=== PATIENT | male | born 1985 | race African-American/Black ===

== ENCOUNTER 2016-11-06 07:02 | Emergency (ER) | payer OTHER ==
[~2016-11-06] VITALS: Ht 170.2 cm; Wt 88.5 kg
[2016-11-06] MEDS ORDERED: cloNIDine HCL 0.1 MG TAB ONE (07:25)
[2016-11-06] MEDS ORDERED: ACETAMINOPHEN 325 MG TAB PO ONE ×2 (07:25→07:30)
[2016-11-06] MEDS ORDERED: cloNIDine HCL 0.1 MG TAB PO ONE (07:30)
[2016-11-06 10:24] LABS: Basophils # (auto) 0 uL; Basophils % (auto) 0.1 % (0.0-2.0); CONDITION Y; Eosinophils # (auto) 0 uL; Eosinophils % (auto) 0.3 % (0.0-7.0); Hematocrit 48.5 % (41.0-53.0); Hemoglobin 16.2 g/dL (13.5-17.5); Lymphocytes # (auto) 0.9 uL; Lymphocytes % (auto) 10.8 % (10.0-50.0); Mean Corpuscular Hemoglobin 29.4 pg (28.0-32.0); Mean Corpuscular Hgb Conc. 33.4 g/dL (32.0-36.0); Mean Corpuscular Volume 88.1 fL (80.0-100.0); Mean Platelet Volume 10.8 fL (7.4-10.4); Monocytes # (auto) 0.2 uL; Monocytes % (auto) 2.1 % (0.0-12.0); Neutrophils # (auto) 6.9 uL; Neutrophils % (auto) 86.7 % (37.0-80.0); Platelet Count (auto) 214 10^3/uL (140-450); Red Cell Distribution Width 14.3 % (11.6-16.0); SUSPECT SEE PRINTOUT
[2016-11-06 10:47] LABS: Albumin 3.5 g/dL (3.4-5.0); BUN/Creatinine Ratio 11.1; Bilirubin, Total 0.9 mg/dL (0.2-1.0); Calcium 9.3 mg/dL (8.5-10.1); Magnesium 2.5 mg/dL (1.6-2.6); Potassium 3.6 mmol/L (3.5-5.1); Total Protein 7.9 g/dL (6.4-8.2)
== END 2016-11-06 14:02 | disposition left against medical advice (07) ==
LOC: ER 07:02
DX: I10 Essential (primary) hypertension (principal); R51 Headache; Z53.21 Procedure and treatment not carried out due to patient leaving prior to being seen by health care provider
CPT/HCPCS: 36415; 80053; 83735; 84484; 85025

== ENCOUNTER 2018-11-22 19:48 | Emergency (ER) | payer SELFPAY ==
[~2018-11-22] VITALS: Ht 170.2 cm; Wt 87.1 kg
[2018-11-22] MEDS ORDERED: cloNIDine HCL 0.1 MG TAB ONE (19:59)
[2018-11-22 20:10] LABS: Urine WBC None Seen /hpf (0 - 3)
[2018-11-22] MEDS ORDERED: cloNIDine HCL 0.1 MG TAB PO ONE (20:15)
[2018-11-22 20:25] LABS: Basophils # (auto) 0.1 uL; Eosinophils # (auto) 0.1 uL; Eosinophils % (auto) 1.8 % (0.0-7.0); Hematocrit 43.1 % (41.0-53.0); Hemoglobin 14.2 g/dL (13.5-17.5); Lymphocytes # (auto) 1.9 uL; Lymphocytes % (auto) 26.6 % (10.0-50.0); Mean Corpuscular Hemoglobin 29.5 pg (28.0-32.0); Mean Corpuscular Volume 89.5 fL (80.0-100.0); Monocytes # (auto) 0.6 uL; Monocytes % (auto) 7.9 % (0.0-12.0); Neutrophils # (auto) 4.6 uL; Neutrophils % (auto) 62.7 % (37.0-80.0); Platelet Count (auto) 235 10^3/uL (140-450); Red Blood Cells 4.82 10^6/uL (4.5-5.90); Red Cell Distribution Width 14.7 % (11.8-14.3); White Blood Cell 7.3 10^3/uL (4.4-10.8)
[2018-11-22 20:30] LABS: Urine Bacteria NONE SEEN /hpf (None Seen); Urine Blood 3+ /uL (Negative)
[2018-11-22 20:41] LABS: Albumin 2.6 g/dL (3.4-5.0); BUN/Creatinine Ratio 4.9; Potassium 4.1 mmol/L (3.5-5.1)
[2018-11-22 20:46] LABS: Bilirubin, Total 0.1 mg/dL (0.2-1.0); Total Protein 6.8 g/dL (6.4-8.2)
[2018-11-23 03:41] VITALS: BP 139/91
[2018-11-23] MEDS ORDERED: MORPHINE SULFATE 4 MG/ML SYR/VIAL IV ONE (04:00)
[2018-11-23] MEDS ORDERED: ONDANSETRON HCL 4 MG/2 ML VIAL IV ONE (04:00)
== END 2018-11-23 04:27 | disposition home or self-care (01) ==
LOC: ER 19:54
DX: N20.0 Calculus of kidney (principal); I12.0 Hypertensive chronic kidney disease with stage 5 chronic kidney disease or end stage renal disease; N18.6 End stage renal disease
CPT/HCPCS: 36415; 74176; 80053; 81001; 84484; 85025; 94761; 96374; 96375; 99284; J2270; J2405

== ENCOUNTER 2019-01-06 14:00 | Emergency (ER) | payer MEDICAID ==
[~2019-01-06] VITALS: Ht 170.2 cm; Wt 89.4 kg
[2019-01-06 14:27] VITALS: BP 207/138
[2019-01-06] MEDS ORDERED: cloNIDine HCL 0.1 MG TAB PO ONE (14:30)
[2019-01-06] MEDS ORDERED: amLODIPine BESYLATE 5 MG TAB PO ONE (14:45)
[2019-01-06] MEDS ORDERED: LISINOPRIL 20 MG TAB PO ONE (15:15)
== END 2019-01-06 14:59 | disposition home or self-care (01) ==
LOC: ER 14:00
DX: N39.0 Urinary tract infection, site not specified (principal); I12.9 Hypertensive chronic kidney disease with stage 1 through stage 4 chronic kidney disease, or unspecified chronic kidney disease; N18.9 Chronic kidney disease, unspecified; Z87.442 Personal history of urinary calculi

== ENCOUNTER → 2019-03-21 | Outpatient (CLI) | payer MEDICAID ==
[~2019-03-21] MED LIST: HYDR25TA4 PO
[2019-03-21 10:43] LABS: Basophils # (auto) 0 uL; Basophils % (auto) 0.8 % (0.0-2.0); Eosinophils # (auto) 0.1 uL; Hematocrit 35.6 % (41.0-53.0); Lymphocytes # (auto) 1.6 uL; Lymphocytes % (auto) 31.1 % (10.0-50.0); Mean Corpuscular Hemoglobin 29.9 pg (28.0-32.0); Mean Corpuscular Hgb Conc. 33.6 g/dL (32.0-36.0); Monocytes # (auto) 0.4 uL; Monocytes % (auto) 7.3 % (0.0-12.0); Neutrophils # (auto) 3.1 uL; Neutrophils % (auto) 59.8 % (37.0-80.0); Platelet Count (auto) 204 10^3/uL (140-450); Red Cell Distribution Width 14.5 % (11.8-14.3); White Blood Cell 5.2 10^3/uL (4.4-10.8)
[2019-03-21 10:48] LABS: Urine Bacteria NONE SEEN /hpf (None Seen); Urine Blood 1+ /uL (Negative); Urine Specific Gravity 1.008 (1.001-1.035); Urine WBC 46 /hpf (0 - 3)
[2019-03-21 11:30] LABS: Albumin 3.8 g/dL (3.4-5.0); Bilirubin, Total 0.4 mg/dL (0.2-1.0); Calcium 9.1 mg/dL (8.5-10.1); Total Protein 7.7 g/dL (6.4-8.2)
[2019-03-21 11:53] LABS: Potassium 6.2 mmol/L (3.5-5.1)
== END | disposition home or self-care (01) ==
LOC: LAB 09:41
PROVIDERS: ATTEND Nurse Practitioner
DX: Z00.00 Encounter for general adult medical examination without abnormal findings (principal); E78.5 Hyperlipidemia, unspecified; I12.9 Hypertensive chronic kidney disease with stage 1 through stage 4 chronic kidney disease, or unspecified chronic kidney disease; N18.4 Chronic kidney disease, stage 4 (severe)
CPT/HCPCS: 36415; 80053; 80061; 81001; 82306; 84443; 85025

== ENCOUNTER → 2019-05-09 | Outpatient (CLI) | payer MEDICAID ==
[2019-05-09 10:20] LABS: Urine Amorphous Crystal FEW /hpf (None Seen); Urine Bacteria FEW /hpf (None Seen); Urine Blood 2+ /uL (Negative); Urine WBC 7 /hpf (0 - 3)
[2019-05-09 10:24] LABS: Basophils # (auto) 0 uL; Basophils % (auto) 0.7 % (0.0-2.0); Eosinophils # (auto) 0.1 uL; Eosinophils % (auto) 1.7 % (0.0-7.0); Hematocrit 30.4 % (41.0-53.0); Hemoglobin 10.3 g/dL (13.5-17.5); Lymphocytes # (auto) 1.5 uL; Lymphocytes % (auto) 28.7 % (10.0-50.0); Mean Corpuscular Hemoglobin 29.4 pg (28.0-32.0); Mean Corpuscular Hgb Conc. 33.7 g/dL (32.0-36.0); Mean Corpuscular Volume 87.2 fL (80.0-100.0); Monocytes # (auto) 0.4 uL; Monocytes % (auto) 7.6 % (0.0-12.0); Neutrophils # (auto) 3.2 uL; Neutrophils % (auto) 61.3 % (37.0-80.0); Platelet Count (auto) 229 10^3/uL (140-450); Red Blood Cells 3.49 10^6/uL (4.5-5.90); Red Cell Distribution Width 14.3 % (11.8-14.3); White Blood Cell 5.3 10^3/uL (4.4-10.8)
[2019-05-09 10:38] LABS: Calcium 8.2 mg/dL (8.5-10.1); Potassium 3.9 mmol/L (3.5-5.1)
[2019-05-09 10:44] LABS: BUN/Creatinine Ratio 2.6; Bilirubin, Total 0.4 mg/dL (0.2-1.0); Total Protein 8.5 g/dL (6.4-8.2)
== END | disposition home or self-care (01) ==
LOC: LAB 09:51
PROVIDERS: ATTEND Nurse Practitioner
DX: Z00.00 Encounter for general adult medical examination without abnormal findings (principal); E78.5 Hyperlipidemia, unspecified; Z99.2 Dependence on renal dialysis
CPT/HCPCS: 36415; 80053; 80061; 81001; 84443; 85025

== ENCOUNTER 2024-05-22 01:46 | Inpatient (IN) | payer MEDICAID ==
[~2024-05-22] VITALS: Ht 167.6 cm; Wt 81.8 kg
[2024-05-22] MEDS: ONDANSETRON HCL 4 MG/2 ML VIAL IM ONE (02:24)
[2024-05-22] MEDS: MORPHINE SULFATE 4 MG/ML SYR/VIAL IV ONE ×2 (02:24→02:43)
[2024-05-22] MEDS: METOPROLOL TARTRATE 1MG/1ML-5ML VIAL IV SCH (02:49)
--- NOTE | 2024-05-22 02:55 | ECG ---
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
--- NOTE | 2024-05-22 02:55 | ECG ---
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
--- NOTE | 2024-05-22 03:13 | ED.PDOC ---
History of Present Illness HPI Comments 38 y/o M, with a Hx of CHF, ESRD w/HD M/W/F, and HTN, presents with c/o chest pain, today. Patient endorses on unprovoked onset of 12/25, sternal chest pain that awoke him from his sleep 1-2 hours ago prior to ED arrival. Patient comments on having chest pain in the past but not as severe as current episode a nd was diagnosed with CHF when evaluated for previous episodes in the past. He also states on receiving his last dialysis session on 04/19/23. Patient denies having any shortness of breath, dizziness, palpitations, nausea, vomiting, or other associated symptoms or modifiers at this time. Chief Complaint: Chest Pain Time Seen by MD: 02:45 Primary Care Provider: GEORGE Miranda Notes: Nurses Notes, Medications, Allergies Allergies: Coded Allergies: NO KNOWN ALLERGIES (Unverified , 01/06/19) Home Meds Reported Medications Hydrochlorothiazide (Hydrochlorothiazide) 25 Mg Tab, 25 MG PO DAILY for 30 Days, MG 03/21/19 Information Source: Patient Mode of Arrival: EMS Severity: Moderate Timing: Hours Duration: Since onset Prehospital treatment: None Past Medical History PAST MEDICAL HISTORY: CHF, ESRD (w/HD M/W/F), HTN, Kidney Stones Surgical History: Denies all surgeries Family History Family History: Reviewed,noncontributory to illness Social History Smoker: Non-Smoker Alcohol: Occasionally Drugs: Marijuana Lives In: Home Cardiovascular: reports: chest pain All Other Systems: Reviewed and Negative (negative unless otherwise stated above or in HPI) Physical Exam General Appearance: Moderate Distress, Normal HEENT: Normal ENT Inspection, Pharynx Normal, TMs Normal Neck: Full Range of Motion, Non-Tender, Normal, Normal Inspection Respiratory: Chest Non-Tender, Lungs Clear, No Accessory Muscle Use, No Respiratory Distress, Normal Breath Sounds Cardiovascular: No Edema, No JVD, No Murmur, No Gallop, Normal Peripheral Pulses, Regular Rate/Rhythm Breast Exam: Deferred Gastrointestinal: Distended, No Organomegaly, Non Tender, No Pulsatile Mass, Normal Bowel Sounds, Soft Genitalia: Deferred Pelvic: Deferred Rectal: Deferred Extremities: No calf tenderness, Normal capillary refill, Normal inspection, Normal range of motion, Non-tender, No pedal edema, Other (left upper extremity fistula ) Musculoskeletal : Apperance: Normal Neurologic: Alert, 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 Was a procedure done?: No EKG EKG : Pulse Rate (adult): 141 Duncan: Normal Cardiac Rhythm: Junctional Block: None Hypertrophy: None ST: Normal Differential Dx Considerations may include: NE, ACS, PE, costochondritis, pericarditis, viral syndrome, URI, PNA, musculoskeletal pain X-Ray, Labs, Meds, VS Vital Signs Date Time Temp Pulse Resp B/P (MAP) Pulse Ox O2 Delivery O2 Flow Rate FiO2 05/22/24 04:00 98.1 140 26 109/85 (93) 90 98.1 05/22/24 03:51 147 22 95 Nasal Cannula* 4 36 05/22/24 03:13 138 122/89 05/22/24 03:13 130 19 122/89 05/22/24 03:01 138 117/91 05/22/24 02:54 138 19 138/88 05/22/24 02:50 142 05/22/24 02:49 147 138/88 05/22/24 02:43 149 26 138/78 05/22/24 02:34 97.9 141 26 132/87 (102) 90 97.9 05/22/24 02:24 148 16 138/78 05/22/24 01:50 98.2 144 18 167/113 (131) 94 05/22/24 01:46 141 Lab Test 05/22/24 03:02 05/22/24 02:14 Range/Units Troponin I High Sensitivity 81 *H 82 *H </=54 ng/L Current Medications Medications (Trade) Dose Ordered Sig/Ramona Route Start Time Stop Time Status Last Admin Morphine Sulfate 4 mg ONCE ONCE IV 05/22/24 02:30 05/22/24 02:31 DC 05/22/24 02:24 Ondansetron HCl (Zofran) 2 mg ONCE ONCE IM 05/22/24 02:30 05/22/24 02:31 DC 05/22/24 02:24 Morphine Sulfate 4 mg ONCE ONCE IV 05/22/24 02:45 05/22/24 02:46 DC 05/22/24 02:43 Metoprolol Tartrate (Lopressor) 5 mg Q5M IV 05/22/24 02:45 05/22/24 03:17 DC 05/22/24 03:13 Patient was given morphine and oxygen were pain. Junctional rhythm with a heart rate of 142. He was given metoprolol 5 mg q.5h minutes x3 intravenous , we will add amiodarone bolus he has chronic kidney disease and he does not make urine. He is scheduled for dialysis on Monday and Fridays. First troponin 81... Second troponin is 82 The patient will be admitted to the hospitalist for further evaluation and care. The patient will be admitted to the hospitalist for further evaluation and care. Time of 1ST Reevaluation: 03:15 Reevaluation 1ST: Unchanged Patient Education/Counseling: Diagnosis, Treatment Family Education/Counseling: No Family Present Departure 1 Departure Time of Disposition: 04:18 Impression: Primary Impression: Chest pain Qualified Codes: R07.9 - Chest pain, unspecified Additional Impressions: Acute coronary syndrome Chronic kidney disease Qualified Codes: N18.9 - Chronic kidney disease, unspecified Junctional rhythm Disposition: ADMITTED INPATIENT Admit to: [facility] Condition: Guarded Critical Care Note Critical Care Time?: No Stability Stability form required: No Heart Score Heart Score: Heart Score Response (Comments) Value History Highly Suspicious 2 EKG Repolarization Disturb 1 Age <45 0 Risk Factors >3 or Hx ASHD 2 Troponin 1-2 x's Normal limit 1 Total 6 I personally scribed for RON CORONA MD ([email or web address]) on 05/22/24 at 03:13. Electronically submitted by Murphy Burns [email or web address]). RON CORONA MD May 22, 2024 03:13
[2024-05-22 03:51] VITALS: PULSE 147; RESP 22; O2SAT 95
--- NOTE | 2024-05-22 04:43 | DVH ---
CHEST RADIOGRAPH Indication: chest pain Technique: Single frontal view of the chest was obtained Comparison: None FINDINGS: Lines and Tubes: None Lungs: No focal consolidation. Pleura: No effusion. No pneumothorax. Cardiomediastinal contours: Unremarkable Bones: No acute osseous abnormality. IMPRESSION: No acute cardiopulmonary disease.
[2024-05-22] MEDS: dilTIAZem 25 MG/5 ML VIAL IV ONE (04:51)
[2024-05-22] MEDS ORDERED: ENOXAPARIN SOD 40 MG/0.4 ML SYRINGE SC ONE (05:30)
[2024-05-22] MEDS ORDERED: NITROGLYCERIN 0.4 MG SL TAB SL PRN (05:30)
[2024-05-22] MEDS ORDERED: MORPHINE SULFATE INJ 2 MG/ml SYRG IV PRN (05:30)
--- NOTE | 2024-05-22 05:35 | DVHHPRES ---
History of Present Illness Resident Creating Document: DYLAN PORTILLO RESDIENT History of Present Illness This is a 38-year-old male with past medical history of CHF, ESRD on maintenance hemodialysis, hypertension and kidney stone came to the hospital due to chest pain. Per patient, the patient had localized constant substernal chest pain with no radiation, 9/10 in intensity and started during the rest, lasted for 40 minutes and improved by taking medicine at hospital. He also reports shortness of breath, weakness, nausea and left upper quadrant pain. Per patient, he has left upper quadrant pain since 1 week. He denies fever, cough, headache, vomiting, or any recent bowel and bladder habit changes. PMHx: CHF, ESRD on maintenance hemodialysis, hypertension and kidney stone Social history: Patient denies smoking, alcohol and any other drug use Home medication: Nifedipine, labetalol, candesartan, and auryxia Allergic history: No known allergy Review of Systems Review of Systems General: Patient reports weakness HEENT: No headaches, visiual changes, hearing loss, tinnitus, nasal congestion and discharge, and sore throat. Cardiovascular: Reports shortness of breaths, chest pain and palpitation Respiratory: No cough, and wheezing. Gastrointestinal: Reports left upper quadrant pain Genitourinary: No dysuria, hematuria, discharge, frequency, urgency, nocturia, incontinence, and urinary retention. Endocrine: No heat or cold intolerance, polydipsia, polyuria, and polyphagia. Neurological: No dizziness, extremity weakness and numbness, tremors, gait disturbance, seizures, and memory impairment. Psychiatric: Denies depression, anxiety,or insomnia. Musculoskeletal: Denies neck pain, stiffness and swelling, back pain, muscle w eakness, joint pain, stiffness, swelling, or limited range of motion. Skin: No rashes, itching, skin lesion, changes in hair, nail, skin texture and breast. Hematologic/Lymphatic: Denies easy bruising, bleeding tendencies, or lymph node enlargement. Allergies: Coded Allergies: NO KNOWN ALLERGIES (Unverified , 01/06/19) Medications Current Medications Medications Dose Ordered Sig/Ramona Route Start Time Stop Time Status Last Admin Dose Admin Nitroglycerin 0.4 mg Q5MINP PRN SL 05/22/24 05:30 Morphine Sulfate 2 mg Q30M PRN IV 05/22/24 05:30 Aspirin 81 mg DAILY PO 05/22/24 10:00 UNV Atorvastatin Calcium 40 mg HS PO 05/22/24 22:00 UNV Enoxaparin Sodium 40 mg DAILY SC 05/22/24 10:00 UNV Exam Vital Signs Vital Signs Date Time Temp Pulse Resp B/P (MAP) Pulse Ox O2 Delivery O2 Flow Rate FiO2 05/22/24 05:00 98.6 127 22 115/94 (101) 98 98.6 05/22/24 03:51 Nasal Cannula* 4 36 Exam General Appearance: Alert, Oriented X3, Cooperative, No acute distress HEENT: Atraumatic, PERRLA, EOMI, Mucous membrane moist/pink Respiratory: Bilateral crackles Cardiovascular: Regular rate, Normal S1, Normal S2, No murmurs, no chest wall tenderness Abdominal: Normal bowel sounds, Soft, No tenderness, No hepatospenomegaly, No masses Extremities: No clubbing, No cyanosis, No edema, Normal pulses, No tenderness/swelling Skin: No rashes, No breakdown, No significant lesion Neuro: Normal gait, Normal speech, Strength at 5/5 X4 ext, Normal tone, Sensation intact, Cranial nerves 3-12 NL, Reflexes 2+ Psych/Mental Status: Mental status NL, Mood NL Labs/Xrays Labs Test 05/22/24 05:00 Range/Units Assessment/Plan Assessment/Plan Acute on chronic heart failure, likely diastolic NSTEMI, likely type 1 SVT, converted to sinus rhythm with metoprolol IV History of hypertension EKG upon admission showed SVT, currently normal sinus rhythm with no ST or T- wave changes Chest x-ray shows cardiomegaly with pulmonary vascular congestion echocardiogram Consulted cardiology IV Lasix Aspirin Atorvastatin Heparin drip Continue home medicine, nifedipine ESRD on maintenance hemodialysis Patient is taking 3 session per week, M/W/F Nephrology consulted DIET: Renal DVT PROPHYLAXIS: Heparin drip GI PROPHYLAXIS:: Protonix CODE STATUS: Goal of care discussed for more than 20 minutes, full code DISPOSITION: Telemetry Patient's status and paln discussed with the patient. Case discussed with Dr. Arellano. Plan discussed with: Patient, Other (RN) My Orders Orders - DYLAN PORTILLO Procedure Category Date Status Time Admit ADMIT 05/22/24 Transmitted 05:24 Nitroglycerin PHA 05/22/24 In Process Sublingual (Ntrostat 05:30 Morphine Sulfate PHA 05/22/24 In Process Injection 05:30 Oxygen By Nasal RT 05/22/24 Transmitted Cannula 05:24 Stat Ekg For Chest [facility] 05/22/24 In Process Pain 05:24 Notify Of Changes [facility] 05/22/24 In Process From Base 05:24 Vp Legal Affairs For [facility] 05/22/24 In Process 24 Hours 05:24 Emergency Dysrhythmia [facility] 05/22/24 In Process Protocol 05:24 Rhythm Strips Once [facility] 05/22/24 In Process Every Shift 05:24 Complete Blood Count LAB 05/22/24 Logged 05:24 Comprehensive LAB 05/22/24 Logged Metabolic Panel 05:24 Magnesium LAB 05/22/24 Logged 05:24 B-Type Natriuretic LAB 05/22/24 Logged Peptide 05:24 Troponin-I Hs LAB 05/22/24 Logged 05:24 Prothrombin Time W/ LAB 05/22/24 Logged INR 05:24 Drug Screen LAB 05/22/24 Logged 05:24 Urine Dip ED NURSING 05/22/24 Transmitted Covid19 Antigen Marielena LAB 05/22/24 Logged Rapid Influenza A&B LAB 05/22/24 Logged 05:24 Mrsa Screen EVERETTE 05/22/24 Logged 05:24 Echo 2d Mode Cardiac US 05/22/24 Logged DOP 05:24 Code Status CODE 05/22/24 Transmitted 05:24 Full Code [facility] 05/22/24 In Process 05:24 Renal DIET 05/22/24 Transmitted Standard(2gna,3gk,Lopho) Breakfast Troponin-I Hs LAB 05/22/24 Logged 06:24 Troponin-I Hs LAB 05/22/24 Logged 08:24 Furosemide Injection PHA 05/22/24 Logged (Lasix Injection) 05:30 Aspirin Tablet PHA 05/22/24 Logged 10:00 Aspirin Tablet PHA 05/22/24 Logged 05:30 Atorvastatin (Lipitor) PHA 05/22/24 Logged 22:00 Atorvastatin (Lipitor) PHA 05/22/24 Logged 05:30 Enoxaparin Sodium PHA 05/22/24 Logged (Lovenox) 05:30 Enoxaparin Sodium PHA 05/22/24 Logged (Lovenox) 10:00 *Dr. Dom Nuñez CONS 05/22/24 Transmitted -[place] 05:28 HEWADMAL,DYLAN LUNSFORD May 22, 2024 05:35
[2024-05-22] MEDS ORDERED: ONDANSETRON ODT 4 MG TAB PO PRN (05:45)
[2024-05-22] MEDS: ATORVASTATIN 20 MG TAB PO ONE (05:53)
[2024-05-22] MEDS: PANTOPRAZOLE 40 MG/10 ML VIAL INJ IV ONE (05:53)
[2024-05-22] MEDS: FUROSEMIDE 100 MG/10ML VIAL IV ONE (05:53)
[2024-05-22] MEDS: ASPirin 81 mg TAB PO ONE (05:53)
[2024-05-22 06:20] LABS: Basophils # (auto) 0.1 10 ^3/uL (0-0.2); Basophils % (auto) 1.2 % (0.0-2.0); Eosinophils # (auto) 0.2 10 ^3/uL (0-0.8); Eosinophils % (auto) 2.3 % (0.0-7.0); Hematocrit 33.9 % (41.0-53.0); Lymphocytes # (auto) 1.1 10 ^3/uL (0.4-5.4); Lymphocytes % (auto) 14.7 % (10.0-50.0); Mean Corpuscular Hemoglobin 30.9 pg (28.0-32.0); Mean Corpuscular Hgb Conc. 32.5 g/dL (32.0-36.0); Mean Corpuscular Volume 95.1 fL (80.0-100.0); Monocytes # (auto) 0.8 10 ^3/uL (0-1.3); Monocytes % (auto) 10.9 % (0.0-12.0); Neutrophils # (auto) 5.2 10 ^3/uL (1.6-8.6); Neutrophils % (auto) 70.9 % (37.0-80.0); Nucleated Red Blood Cells % 0.1 %; Platelet Count (auto) 157 10^3/uL (140-450); Red Blood Cells 3.57 10^6/uL (4.5-5.90); Red Cell Distribution Width 17.9 % (11.8-14.3); White Blood Cell 7.3 10^3/uL (4.4-10.8)
[2024-05-22 06:34] LABS: Alanine Aminotransferase 18 U/L (7-40); Anion Gap 15 (5-15); Aspartate Aminotransferase 26 U/L (13-40); BUN/Creatinine Ratio 5.6 (10.0-20.0); Carbon Dioxide 22 mmol/L (20-31); Chloride 99 mmol/L (98-107); Glucose 104 mg/dL (74-106); Magnesium 2.4 mg/dL (1.6-2.6); Potassium 4.2 mmol/L (3.5-5.1); Sodium 136 mmol/L (136-145)
[2024-05-22 06:35] LABS: Albumin 4.3 g/dL (3.2-4.8); Bilirubin, Total 0.6 mg/dL (0.2-1.0); Total Protein 7.2 g/dL (5.7-8.2)
[2024-05-22 06:37] LABS: Alkaline Phosphatase 159 U/L (46-116); Blood Urea Nitrogen 47 mg/dL (9-23)
[2024-05-22 06:39] LABS: INR 1.19 (0.9-1.15); Prothrombin Time 12.4 sec (9.3-11.8)
[2024-05-22] MEDS: ENOXAPARIN SOD 30 MG/0.3 ML SYRINGE SC SCH (07:06)
[2024-05-22 07:30] VITALS: PULSE 75; RESP 12; O2SAT 98
[2024-05-22 08:14] VITALS: TEMP 97.9
[2024-05-22] MEDS: NIFEdipine ER 30 MG TAB PO ONE (08:48)
[2024-05-22] MEDS: HYDROcodone-ACET 5/325MG TAB PO PRN (08:50)
[2024-05-22] MEDS ORDERED: HEPARIN DRIP/D5W 100UNITS/ML 250 ML IV SCH (09:00)
[2024-05-22 09:36] LABS: Rapid Influenza A Negative (Negative); Rapid Influenza B Negative (Negative)
[2024-05-22 09:45] LABS: Basophils # (auto) 0.1 10 ^3/uL (0-0.2); Eosinophils # (auto) 0.1 10 ^3/uL (0-0.8); Eosinophils % (auto) 1.2 % (0.0-7.0); Lymphocytes % (auto) 16.3 % (10.0-50.0); Mean Corpuscular Hemoglobin 30.4 pg (28.0-32.0); Mean Corpuscular Hgb Conc. 32.2 g/dL (32.0-36.0); Mean Corpuscular Volume 94.2 fL (80.0-100.0); Monocytes # (auto) 0.5 10 ^3/uL (0-1.3); Monocytes % (auto) 8.6 % (0.0-12.0); Neutrophils # (auto) 4.3 10 ^3/uL (1.6-8.6); Neutrophils % (auto) 72.9 % (37.0-80.0); Platelet Count (auto) 166 10^3/uL (140-450); Red Blood Cells 3.61 10^6/uL (4.5-5.90); Red Cell Distribution Width 18.1 % (11.8-14.3); White Blood Cell 5.8 10^3/uL (4.4-10.8)
[2024-05-22 10:00] VITALS: BP 140/92; PULSE 70; RESP 15
[2024-05-22 10:08] LABS: INR 1.03 (0.9-1.15); Partial Thromboplastin Time 27.9 SEC (24.5-34.5); Prothrombin Time 10.9 sec (9.3-11.8)
--- NOTE | 2024-05-22 10:24 | DVHINCON2 ---
Date Seen: May 22, 2024 Referring Physician MD Brigitte Reason for Consultation NSTEMI History of Present Illness This is a 38-year-old man who presented to the emergency room via EMS with a chief complaint of palpitations last night. The patient reports he was asleep when he developed a sudden onset of palpitations prompting him to call 911. Upon EMS arrival the patient was medicated with ASA 324 mg x 1 and NTG SL 0.4 mg x2 with no relief of symptoms. He underwent multiple 12 lead electrocardiogram revealing a junctional tachycardia rhythm for which the patient was medicated with Cardizem 10 mg IV with successful transition into a normal sinus rhythm. He denies any further cardiac symptoms and complaints of left abdominal pain. 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 Significant medical history includes congestive heart failure, hypertension, end-stage renal disease on hemodialysis -W-, and obesity. Past Medical History Past medical history reviewed. No other significant than mentioned above. Past Surgical History Dialysis access Family History Family history reviewed. Social History Denies the use of illicit drugs, alcohol, or tobacco use. Allergies: Coded Allergies: NO KNOWN ALLERGIES (Unverified , 01/06/19) Home Meds Reported Medications Hydrochlorothiazide (Hydrochlorothiazide) 25 Mg Tab, 25 MG PO DAILY for 30 Days, MG 03/21/19 Home Meds Home medications reviewed. Current Medications Current Medications Medications (Trade) Dose Ordered Sig/Ramona Route PRN Reason Start Time Stop Time Status Last Admin Metoprolol Tartrate (Lopressor) 5 mg Q5M IV 05/22/24 02:45 05/22/24 03:17 DC 05/22/24 03:13 Nitroglycerin (Ntrostat Sublingual) 0.4 mg Q5MINP PRN SL FOR CHEST PAIN 05/22/24 05:30 Morphine Sulfate 2 mg Q30M PRN IV FOR CHEST PAIN 05/22/24 05:30 05/22/24 06:57 DC Aspirin 81 mg DAILY PO 05/23/24 10:00 Atorvastatin Calcium (Lipitor) 40 mg HS PO 05/22/24 22:00 Enoxaparin Sodium (Lovenox) 30 mg DAILY SC 05/22/24 07:00 05/22/24 08:54 DC 05/22/24 07:06 Pantoprazole Sodium (Protonix) 40 mg DAILY IV 05/23/24 10:00 05/22/24 07:43 DC Ondansetron HCl (Zofran Po) 4 mg Q8HP PRN PO NAUSEA / VOMITING 05/22/24 05:45 05/22/24 06:57 DC Acetaminophen/ Hydrocodone Bitart ([place] 5/325MG Tab) 1 tab Q6HPRN PRN PO MODERATE PAIN (4-6 PAIN SCALE) 05/22/24 05:45 05/22/24 08:50 Nifedipine (Procardia Xl (Time-Release)) 90 mg DAILY PO 05/23/24 10:00 Pantoprazole Sodium (Protonix) 40 mg DAILY IV 05/22/24 10:00 Heparin Sodium/ Dextrose 250 ml @ 10 mls/hr Q24H IV 05/22/24 09:00 Review of Systems Constitutional: No symptom reported Ears, Nose, & Throat: No symptom reported Eyes: No symptom reported Neurological: No symptoms reported Pulmonary/Respiratory: No symptom reported Cardiovascular: Palpitations Gastrointestinal: No symptom reported Genitourinary: No symptom reported Musculoskeletal: No symptom reported Skin: No symptom reported Psychiatric: No symptom reported Endocrine: No symptom reported Hemotologic/Lymphatic: No symptom reported Vital Signs Vital Signs Date Time Temp Pulse Resp B/P (MAP) Pulse Ox O2 Delivery O2 Flow Rate FiO2 05/22/24 08:48 140/92 05/22/24 08:14 97.9 71 17 100 97.9 05/22/24 03:51 Nasal Cannula* 4 36 Physical Exam General Appearance: Cooperative. Facial edema. In no acute distress Head Exam: Normal inspection Neck Exam: Normal inspection. Non-tender. Normal alignment Pulmonary/Respiratory: Chest non-tender. Clear bilateral breath sounds Cardiovascular/Chest: Regular rate and rhythm. S1, S2. NSR. No murmurs. No JVD. Peripheral Pulses: 2+ Radial (R). 2+ Radial (L). 2+ Pedal (R). 2+ Pedal (L) Abdominal Exam: Normal bowel sounds. Soft. Nontender. No hepatospenomegaly. No masses Ankle Exam: Negative ankle edema Lower extremities: Negative lower extremity edema Neuro/Mental Status: A&O x4. Coherent Thoughts/Psych: Normal thought pattern. Appropriate mood and affect. Good judgement and insight Appearance: In no acute distress Skin Exam: Normal inspection. Normal color. Warm. Dry Labs/Diagnostic Data Labs Test 05/22/24 09:30 05/22/24 08:50 05/22/24 08:03 05/22/24 02:19 Range/Units White Blood Count 5.8 4.4-10.8 10^3/uL Red Blood Count 3.61 L 4.5-5.90 10^6/uL Hemoglobin 11.0 L 13.5-17.5 g/dL Hematocrit 34.0 L 41.0-53.0 % Mean Corpuscular Volume 94.2 80.0-100.0 fL Mean Corpuscular Hemoglobin 30.4 28.0-32.0 pg Mean Corpuscular Hemoglobin Concent 32.2 32.0-36.0 g/dL Red Cell Distribution Width 18.1 H 11.8-14.3 % Platelet Count 166 140-450 10^3/uL Mean Platelet Volume 8.8 6.9-10.8 fL Neutrophils (%) (Auto) 72.9 37.0-80.0 % Lymphocytes (%) (Auto) 16.3 10.0-50.0 % Monocytes (%) (Auto) 8.6 0.0-12.0 % Eosinophils (%) (Auto) 1.2 0.0-7.0 % Basophils (%) (Auto) 1.0 0.0-2.0 % Neutrophils # (Auto) 4.3 1.6-8.6 10 ^3/uL Lymphocytes # (Auto) 1.0 0.4-5.4 10 ^3/uL Monocytes # (Auto) 0.5 0-1.3 10 ^3/uL Eosinophils # (Auto) 0.1 0-0.8 10 ^3/uL Basophils # (Auto) 0.1 0-0.2 10 ^3/uL Nucleated Red Blood Cells 0.0 % Prothrombin Time 10.9 9.3-11.8 sec Prothrombin Time INR 1.03 0.9-1.15 Activated Partial Thromboplast Time 27.9 24.5-34.5 SEC Influenza Type A Antigen Negative Negative Influenza Type B Antigen Negative Negative Troponin I High Sensitivity 198 *H </=54 ng/L Sodium Level 136 136-145 mmol/L Potassium Level 4.2 3.5-5.1 mmol/L Chloride Level 99 98-107 mmol/L Carbon Dioxide Level 22 20-31 mmol/L Anion Gap 15 5-15 Blood Urea Nitrogen 47 H 9-23 mg/dL Creatinine 8.37 H 0.700-1.30 mg/dL Glomerular Filtration Rate Calc 8 >90 mL/min BUN/Creatinine Ratio 5.6 L 10.0-20.0 Serum Glucose 104 74-106 mg/dL Calcium Level 9.0 8.7-10.4 mg/dL Magnesium Level 2.4 1.6-2.6 mg/dL Total Bilirubin 0.6 0.2-1.0 mg/dL Aspartate Amino Transferase (AST) 26 13-40 U/L Alanine Aminotransferase (ALT) 18 7-40 U/L Alkaline Phosphatase 159 H 46-116 U/L B-Type Natriuretic Peptide 4790.68 0-100 pg/mL Total Protein 7.2 5.7-8.2 g/dL Albumin 4.3 3.2-4.8 g/dL Assessment Junctional tachycardia, now NSR Cardiorenal syndrome Type IV NSTEMI, likely type 2 secondary to above Rule out structural heart disease Hypertension ESRD on HD Cardiac disease Obesity Plan/Recommendation (Dr. Ramsey) The patient with palpitations presented with a junctional tachycardia rhythm which converted into a normal sinus rhythm after Cardizem administration. Denies any further symptoms. Continue with a transthoracic echocardiogram to evaluate cardiac function. Preliminary LVEF appears to be optimal with LAE and LVH. Initiate beta-david with metoprolol XL and uptitrate as tolerated. DVT/VTE prophylaxis, heparin SC. We recommend follow-up with Cardiology in the outpatient setting including an outpatient event monitor. There is no further cardiac workup indicated at this time. Kindly call with any questions or concerns. Thank you for allowing us to participate in this patient's care. This medical document was created using an electronic medical record system with voice recognition software and computerized dictation system. Although this document has been carefully reviewed, there might still be some phonetic and typographical errors. Occasional wrong-word or ``sound-alike substitutions may have occurred due to the inherent limitations of voice recognition software. These areas are purely typographical due to imperfections of the software programs and do not reflect any compromise in the patient's medical care. Please read the chart carefully and recognize, using context, where these substitutions have occurred. Plan discussed with: Patient, Other NYHA Physical activity limitations: NA Date of Service: May 22, 2024 Billing Provider: PATRICE HODGES Cardiology Common Codes: 11954-QCSRZAA INP/OBS CARE (High) PATRICE HODGES May 22, 2024 10:23
[2024-05-22 10:59] LABS: COVID19 ANTIGEN SOFIA FIA NEGATIVE (NEGATIVE)
[2024-05-22] MEDS: PANTOPRAZOLE 40 MG/10 ML VIAL INJ IV SCH (11:29)
[2024-05-22] MEDS: HEPARIN SODIUM (PORCINE) 5000 UNITS/ML 1ML VIAL SC ONE (11:36)
[2024-05-22 12:08] VITALS: O2SAT 100
--- NOTE | 2024-05-22 15:57 | DVHSR ---
APPROVED REPORT EXAM: Two-dimensional and M-mode echocardiogram with Doppler, color Doppler and Bubble Study. Blood Pressure: 128/78 mmHg INDICATION Heart Failure RISK FACTORS Height: 5'6, Weight: 180 DIMENSIONS LVDd4.7 (3.8-5.7cm)LA (2D)5.4 (1.9-4.0cm)Aortic Root3.6 (2.0-3.7cm) LVDs3.0 (2.5-4.0cm)LA (MM) (1.9-4.0cm)Aortic Cusp Exc1.7 (1.5-2.0cm) EF (%) 65.0 (55-70%)Rt. Atrium4.2 (1.9-4.0cm)Asc. Aorta3.2 cm IVSd1.7 (0.7-1.1cm)RV (D)4.4 (1.8-2.4cm) PWd1.7 (0.7-1.1cm) Mitral Valve MitralMitral Stenosis E wave1.28m/sMV Mean GR.mmHg A wave0.60m/sMV Peak GR.65mmHg E/A ratio2.12D MVAcm2 DECEL [id number] 1/2 Timems Aortic Valve Aortic ValveAortic Stenosis V10.99m/Mariano Mean GR.6mmHg V21.65m/Mariano Peak GR.11mmHg LVOT Diameter2.3 (1.8-2.4cm)Doppler AVA2.49cm2 Pulmonic Valve V20.90m/s Tricuspid Valve TR Velocity3.31m/s [id number] Conclusion Technically good study. Sinus rhythm. Significant concentric LVH. Left atrial enlargement. Aortic root enlargement. RV hypertrophy. Rig ht atrial enlargement. Hypertrophied papillary muscles. Mild aortic sclerosis without stenosis. Mild mitral annular calcification and thickening of the ante rior mitral leaflet and mild calcification of the chordae. The tricuspid and pulmonic are normal. N o significant valvular dysfunction. EF of 65-70% with normal RV function. Mild pulmonic insufficiency. Moderate tricuspid regurgitation. Small pericardial effusion not hemodynamically significant. No intracardiac masses thrombi or vegetations discernible. Bubble study performed appears normal. No crossover noted.
--- NOTE | 2024-05-22 16:09 | DVHINCON2 ---
Date of service: May 22, 2024 Reason for Consultation esrd History of Present Illness 38 years old male with past medical history of Congestive heart failure, ESRD dialysis, hypertension presented with chief complaints of chest pain, palpitations found to have tachyarrhythmia on admission needing Cardizem patient denies any missing dialysis, denies shortness of breath, seen and examined in emergency room currently heart rate within normal limit Past Medical History As per HPI Past Surgical History As per HPI Allergies: Coded Allergies: NO KNOWN ALLERGIES (Unverified , 01/06/19) Home Meds Reported Medications Hydrochlorothiazide (Hydrochlorothiazide) 25 Mg Tab, 25 MG PO DAILY for 30 Days, MG 03/21/19 Current Medications Current Medications Medications (Trade) Dose Ordered Sig/Ramona Route PRN Reason Start Time Stop Time Status Last Admin Metoprolol Tartrate (Lopressor) 5 mg Q5M IV 05/22/24 02:45 05/22/24 03:17 DC 05/22/24 03:13 Nitroglycerin (Ntrostat Sublingual) 0.4 mg Q5MINP PRN SL FOR CHEST PAIN 05/22/24 05:30 Morphine Sulfate 2 mg Q30M PRN IV FOR CHEST PAIN 05/22/24 05:30 05/22/24 06:57 DC Aspirin 81 mg DAILY PO 05/23/24 10:00 Atorvastatin Calcium (Lipitor) 40 mg HS PO 05/22/24 22:00 Enoxaparin Sodium (Lovenox) 30 mg DAILY SC 05/22/24 07:00 05/22/24 08:54 DC 05/22/24 07:06 Pantoprazole Sodium (Protonix) 40 mg DAILY IV 05/23/24 10:00 05/22/24 07:43 DC Ondansetron HCl (Zofran Po) 4 mg Q8HP PRN PO NAUSEA / VOMITING 05/22/24 05:45 05/22/24 06:57 DC Acetaminophen/ Hydrocodone Bitart (Bath 5/325MG Tab) 1 tab Q6HPRN PRN PO MODERATE PAIN (4-6 PAIN SCALE) 05/22/24 05:45 05/22/24 08:50 Nifedipine (Procardia Xl (Time-Release)) 90 mg DAILY PO 05/23/24 10:00 05/22/24 10:26 DC Pantoprazole Sodium (Protonix) 40 mg DAILY IV 05/22/24 10:00 05/22/24 11:29 Heparin Sodium/ Dextrose 250 ml @ 10 mls/hr Q24H IV 05/22/24 09:00 05/22/24 10:26 DC Metoprolol Succinate (Toprol Xl) 25 mg DAILY PO 05/23/24 10:00 Heparin Sodium (Porcine) 5,000 units Q12HR SC 05/22/24 22:00 Nifedipine (Procardia Xl (Time-Release)) 60 mg DAILY PO 05/23/24 10:00 Review of Systems HEENT-denies headache, denies vision changes, no hearing issue, denies neck complaints, denies throat issues Respiratory system-denies cough, denies shortness of breath Cardiovascular system-positive chest pain positive palpitations Abdomen-denies abdominal pain, denies nausea, denies vomiting, denies constipa tion or diarrhea Musculoskeletal-denies swelling in the legs, denies pain in the extremities Genitourinary-denies urinary symptoms like dysuria, stream issues Neuro-denies dizziness, denies seizures Psychiatric-denies psychiatric history H&P Exam Vital Signs/I&O Vital Sign Date Time Temp Pulse Resp B/P (MAP) Pulse Ox O2 Delivery O2 Flow Rate FiO2 05/22/24 12:08 100 Nasal Cannula* 4 36 05/22/24 10:00 70 15 140/92 (108) 05/22/24 08:14 97.9 97.9 Physical Exam General-not in any distress HEENT-normocephalic, no icterus, no pallor, neck supple Respiratory-fair air entry bilateral, no rhonchi, no wheeze [id number] heard, no murmurs appreciated Abdominal-soft, nontender, nondistended Musculoskeletal-no pedal edema, no calf tenderness Genitourinary-deferred Neuro-awake alert oriented x3, Psychiatric-not agitated, cooperative, Labs/Diagnostic Data Labs/Diagnostic Data Laboratory Tests Test 05/22/24 15:11 05/22/24 09:30 05/22/24 08:50 05/22/24 08:03 Range/Units White Blood Count 5.8 4.4-10.8 10^3/uL Red Blood Count 3.61 L 4.5-5.90 10^6/uL Hemoglobin 11.0 L 13.5-17.5 g/dL Hematocrit 34.0 L 41.0-53.0 % Mean Corpuscular Volume 94.2 80.0-100.0 fL Mean Corpuscular Hemoglobin 30.4 28.0-32.0 pg Mean Corpuscular Hemoglobin Concent 32.2 32.0-36.0 g/dL Red Cell Distribution Width 18.1 H 11.8-14.3 % Platelet Count 166 140-450 10^3/uL Mean Platelet Volume 8.8 6.9-10.8 fL Neutrophils (%) (Auto) 72.9 37.0-80.0 % Lymphocytes (%) (Auto) 16.3 10.0-50.0 % Monocytes (%) (Auto) 8.6 0.0-12.0 % Eosinophils (%) (Auto) 1.2 0.0-7.0 % Basophils (%) (Auto) 1.0 0.0-2.0 % Neutrophils # (Auto) 4.3 1.6-8.6 10 ^3/uL Lymphocytes # (Auto) 1.0 0.4-5.4 10 ^3/uL Monocytes # (Auto) 0.5 0-1.3 10 ^3/uL Eosinophils # (Auto) 0.1 0-0.8 10 ^3/uL Basophils # (Auto) 0.1 0-0.2 10 ^3/uL Nucleated Red Blood Cells 0.0 % Prothrombin Time 10.9 9.3-11.8 sec Prothrombin Time INR 1.03 0.9-1.15 Activated Partial Thromboplast Time 27.9 24.5-34.5 SEC Influenza Type A Antigen Negative Negative Influenza Type B Antigen Negative Negative SARS-CoV-2 Antigen (Rapid) Negative NEGATIVE Troponin I High Sensitivity 198 *H </=54 ng/L Test 05/22/24 05:00 05/22/24 03:02 05/22/24 02:19 05/22/24 02:14 Range/Units Troponin I High Sensitivity 74 *H 81 *H 82 *H </=54 ng/L White Blood Count 7.3 4.4-10.8 10^3/uL Red Blood Count 3.57 L 4.5-5.90 10^6/uL Hemoglobin 11.0 L 13.5-17.5 g/dL Hematocrit 33.9 L 41.0-53.0 % Mean Corpuscular Volume 95.1 80.0-100.0 fL Mean Corpuscular Hemoglobin 30.9 28.0-32.0 pg Mean Corpuscular Hemoglobin Concent 32.5 32.0-36.0 g/dL Red Cell Distribution Width 17.9 H 11.8-14.3 % Platelet Count 157 140-450 10^3/uL Mean Platelet Volume 9.2 6.9-10.8 fL Neutrophils (%) (Auto) 70.9 37.0-80.0 % Lymphocytes (%) (Auto) 14.7 10.0-50.0 % Monocytes (%) (Auto) 10.9 0.0-12.0 % Eosinophils (%) (Auto) 2.3 0.0-7.0 % Basophils (%) (Auto) 1.2 0.0-2.0 % Neutrophils # (Auto) 5.2 1.6-8.6 10 ^3/uL Lymphocytes # (Auto) 1.1 0.4-5.4 10 ^3/uL Monocytes # (Auto) 0.8 0-1.3 10 ^3/uL Eosinophils # (Auto) 0.2 0-0.8 10 ^3/uL Basophils # (Auto) 0.1 0-0.2 10 ^3/uL Nucleated Red Blood Cells 0.1 % Prothrombin Time 12.4 H 9.3-11.8 sec Prothrombin Time INR 1.19 H 0.9-1.15 Sodium Level 136 136-145 mmol/L Potassium Level 4.2 3.5-5.1 mmol/L Chloride Level 99 98-107 mmol/L Carbon Dioxide Level 22 20-31 mmol/L Anion Gap 15 5-15 Blood Urea Nitrogen 47 H 9-23 mg/dL Creatinine 8.37 H 0.700-1.30 mg/dL Glomerular Filtration Rate Calc 8 >90 mL/min BUN/Creatinine Ratio 5.6 L 10.0-20.0 Serum Glucose 104 74-106 mg/dL Calcium Level 9.0 8.7-10.4 mg/dL Magnesium Level 2.4 1.6-2.6 mg/dL Total Bilirubin 0.6 0.2-1.0 mg/dL Aspartate Amino Transferase (AST) 26 13-40 U/L Alanine Aminotransferase (ALT) 18 7-40 U/L Alkaline Phosphatase 159 H 46-116 U/L B-Type Natriuretic Peptide 4790.68 0-100 pg/mL Total Protein 7.2 5.7-8.2 g/dL Albumin 4.3 3.2-4.8 g/dL Assessment ESRD on hemodialysis Tachy arrhythmia Acute hypoxic respiratory failure Hypertension Recommendations Seen on hemodialysis today UF as tolerated Cardiology recs noted Plan discussed with: Patient DYLON CORONA MD May 22, 2024 16:09
--- NOTE | 2024-05-22 17:10 | DVHPNRES ---
Progress Note Date Seen: May 22, 2024 Resident Creating Document: VALDO JAINMOSHEROSEANNE RESIDENT Medical Necessity Reason Pt with a Central, PICC or Fol: No Subjective Review of Systems Patient is a 38-year-old male with a past medical history of end-stage renal disease on dialysis Monday via left AV fistula, CHF likely HFpEF, hypertension was brought to the ED via EMS for palpitations. Patient is reported to be apparently well when yesterday night around 11:30 p.m. he started to have sudden onset palpitations with the associated substernal chest pain which was sharp in nature, nonradiating, which did not improve with nitroglycerin and aspirin given by the EMS. Patient also reported that since the last week he has been having left-sided chest pain which increased with taking deep breath and on coughing. Patient denied shortness of breath, cough, sick contacts, fever, chills. Patient was brought hospital and on admission he had elevated heart rate anywhere between 120-150. ECG showed heart rate about 150 and likely supraventricular tachycardia. Cardizem 10 mg IV was given following which patient's heart rate became sinus rhythm. Past medical history:end-stage renal disease on dialysis Monday via left AV fistula, CHF likely HFpEF, hypertension Past surgical history: Left AV fistula Social history: Patient denies smoking, alcohol, drug use Home medication: Nifedipine 90 mg q.d., labetalol 300 mg b.i.d., candesartan, Auryxia Review of systems Patient seen and examined at bedside Reported having chest pain on the left lateral chest which exacerbate to be taking deep breaths and coughing Denied shortness of breath, palpitations, dizziness, headache, loss of consciousness Reports no changes in the bowel or bladder habits Objective vital signs Vital Sign Date Time Temp Pulse Resp B/P (MAP) Pulse Ox O2 Delivery O2 Flow Rate FiO2 05/22/24 12:08 100 Nasal Cannula* 4 36 05/22/24 10:00 70 15 140/92 (108) 05/22/24 08:14 97.9 97.9 medications Current Medications Medications Dose Ordered Sig/Ramona Route Start Time Stop Time Status Last Admin Dose Admin Nitroglycerin 0.4 mg Q5MINP PRN SL 05/22/24 05:30 Aspirin 81 mg DAILY PO 05/23/24 10:00 Atorvastatin Calcium 40 mg HS PO 05/22/24 22:00 Acetaminophen/ Hydrocodone Bitart 1 tab Q6HPRN PRN PO 05/22/24 05:45 05/22/24 08:50 1 TAB Pantoprazole Sodium 40 mg DAILY IV 05/22/24 10:00 05/22/24 11:29 40 MG Metoprolol Succinate 25 mg DAILY PO 05/23/24 10:00 Heparin Sodium (Porcine) 5,000 units Q12HR SC 05/22/24 22:00 Nifedipine 60 mg DAILY PO 05/23/24 10:00 Examination Physical Examination Constitutional: Patient was alert and oriented to time, place and person and does not appear to be in any acute distress Gen - no pallor, no icterus, no cyanosis, no clubbing, no LAD, no edema . Skin - Patients skin is warm and dry. HEENT - normocephalic, atraumatic, moist mucous membranes. Neck - full ROM, no LAD, no JVD Pulmonary - B/L vesicular breath sounds. no crackles , no wheezing cardiovascular - normal S1,S2 heard. S3 heard. no murmurs. peripheral pulses normal radial 2+, pedal 2+. GI - soft abdomen without tenderness to palpation. no hepatospleenomegaly. Bowel sounds normoactive Neurological - Bilateral upper extremity strength 5/5, bilateral lower extremity strength 5/5, no facial droop, normal speech, no tremor, no sensory deficiets. laboratory and microbiology Laboratory Tests 05/22/24 09:30 05/22/24 02:19 Test 05/22/24 02:19 Range/Units Serum Glucose 104 74-106 mg/dL Problem List/Assessment/Plan Problem List/Assessment/Plan Acute chest pain, rule out ACS Palpitations, supraventricular tachycardia NSTEMI type 1 versus type 2 Acute on chronic heart failure with preserved ejection fraction Hypertensive heart disease with heart failure - on admission ECG showed supraventricular tachycardia, converted to sinus rhythm with no ST segment or T-wave changes - troponin levels trended 82->81-> 74-> 198 - BNP 4790 pg/mL - echo shows concentric LVH, LAE, aortic root enlargement, RVH, BARRETT LVEF 65-70% - cardiology consulted suspecting NSTEMI type 1 - cardiology assessed the patient and recommended no further inpatient care and follow up in the outpatient setting. Started the patient on metoprolol succinate due to junctional rhythm - currently on nifedipine 90 mg - on aspirin 81 mg and atorvastatin 40 mg - on telemetry End-stage renal disease on hemodialysis - nephrology on board - patient got hemodialysis today - monitor kidney function PUD prophylaxis: Protonix 40 mg p.o. DVT prophylaxis: Heparin 5000 units q.12 hours SC Goals of care discussed with the patient for over 25 minutes. Full code Plan discussed with Dr. Arellano Plan discussed with: Patient My Orders My Orders Orders - ROSE JAIN Procedure Category Date Status Time Transfer Orders XFER 05/22/24 Transmitted 15:55 ROSE JAIN May 22, 2024 17:10
[2024-05-22] MEDS: SODIUM CHL 0.9% 1000 ML BAG XX ONE (17:17)
[2024-05-22] MEDS: hydrALAZINE HCL 20 MG/ML VL IV PRN (18:47)
--- NOTE | 2024-05-22 19:01 | ECG ---
[facility] Test Date: 2024-05-22 Test Time: 07:37:18 Pat Name: SHERINE MANN Department: ed Room: [address] [place] [address] A Gender: M Varitypist: alexandro : 1985 Requested By: RON CORONA Order Number: [id number] Reading MD: Ezekiel Ramsey Measurements Intervals Gilbert Rate: 64 P: 63 IN: 176 QRS: 99 QRSD: 104 T: 26 QT: 477 QTc: 493 Interpretive Statements Sinus rhythm Probable left atrial enlargement Borderline right axis deviation Left ventricular hypertrophy Borderline prolonged QT interval Electronically Signed On 05-23-2024 9:47:53 PST by Ezekiel Ramsey Please click the below link to view image of tracing.
[2024-05-22] MEDS ORDERED: EPOETIN ALFA-EPBX 4,000 UNIT/ML VIAL SC ONE (21:00)
[2024-05-22] MEDS ORDERED: HEPARIN SODIUM (PORCINE) 5000 UNITS/ML 1ML VIAL SC SCH (22:00)
[2024-05-22] MEDS ORDERED: ATORVASTATIN 20 MG TAB PO SCH (22:00)
[2024-05-23] MEDS ORDERED: PANTOPRAZOLE 40 MG TAB PO SCH (06:00)
[2024-05-23 09:03] LABS: Hepatitis B Surface Antigen Negative (Negative)
[2024-05-23 09:18] LABS: Hepatitis B Core IgM Negative (Negative); Hepatitis C Antibody Negative (Negative)
[2024-05-23 09:36] LABS: Hepatitis A Ab IgM Negative
[2024-05-23] MEDS ORDERED: METOPROLOL SUCCINATE XL 50 MG TAB PO SCH ×2 (10:00)
[2024-05-23] MEDS ORDERED: PANTOPRAZOLE 40 MG/10 ML VIAL INJ IV SCH (10:00)
[2024-05-23] MEDS ORDERED: ASPirin 81 mg TAB PO SCH (10:00)
[2024-05-23] MEDS ORDERED: NIFEdipine ER 30 MG TAB PO SCH ×3 (10:00)
--- NOTE | 2024-05-23 13:05 | DVHDSRES ---
Discharge Summary Date of Admission Resident Creating Document: ROSE JAIN RESIDENT May 22, 2024 at 05:24 Date of Discharge: May 22, 2024 Admitting Diagnosis Acute on chronic heart failure, likely diastolic NSTEMI, likely type 1 SVT, converted to sinus rhythm with metoprolol IV ESRD on maintenance hemodialysis Wounds: none Labs/Diagnostic Data: Laboratory Results Test 05/22/24 15:11 05/22/24 09:30 05/22/24 08:50 05/22/24 08:03 Hepatitis A IgM Antibody Negative Hepatitis B Surface Antigen Negative (Negative) Hepatitis B Core IgM Antibody Negative (Negative) Hepatitis C Antibody Negative (Negative) White Blood Count 5.8 10^3/uL (4.4-10.8) Red Blood Count 3.61 10^6/uL (4.5-5.90) Hemoglobin 11.0 g/dL (13.5-17.5) Hematocrit 34.0 % (41.0-53.0) Mean Corpuscular Volume 94.2 fL (80.0-100.0) Mean Corpuscular Hemoglobin 30.4 pg (28.0-32.0) Mean Corpuscular Hemoglobin Concent 32.2 g/dL (32.0-36.0) Red Cell Distribution Width 18.1 % (11.8-14.3) Platelet Count 166 10^3/uL (140-450) Mean Platelet Volume 8.8 fL (6.9-10.8) Neutrophils (%) (Auto) 72.9 % (37.0-80.0) Lymphocytes (%) (Auto) 16.3 % (10.0-50.0) Monocytes (%) (Auto) 8.6 % (0.0-12.0) Eosinophils (%) (Auto) 1.2 % (0.0-7.0) Basophils (%) (Auto) 1.0 % (0.0-2.0) Neutrophils # (Auto) 4.3 10 ^3/uL (1.6-8.6) Lymphocytes # (Auto) 1.0 10 ^3/uL (0.4-5.4) Monocytes # (Auto) 0.5 10 ^3/uL (0-1.3) Eosinophils # (Auto) 0.1 10 ^3/uL (0-0.8) Basophils # (Auto) 0.1 10 ^3/uL (0-0.2) Nucleated Red Blood Cells 0.0 % Prothrombin Time 10.9 sec (9.3-11.8) Prothrombin Time INR 1.03 (0.9-1.15) Activated Partial Thromboplast Time 27.9 SEC (24.5-34.5) Influenza Type A Antigen Negative (Negative) Influenza Type B Antigen Negative (Negative) SARS-CoV-2 Antigen (Rapid) Negative (NEGATIVE) Troponin I High Sensitivity 198 ng/L (</=54) Test 05/22/24 02:19 Sodium Level 136 mmol/L (136-145) Potassium Level 4.2 mmol/L (3.5-5.1) Chloride Level 99 mmol/L (98-107) Carbon Dioxide Level 22 mmol/L (20-31) Anion Gap 15 (5-15) Blood Urea Nitrogen 47 mg/dL (9-23) Creatinine 8.37 mg/dL (0.700-1.30) Glomerular Filtration Rate Calc 8 mL/min (>90) BUN/Creatinine Ratio 5.6 (10.0-20.0) Serum Glucose 104 mg/dL (74-106) Calcium Level 9.0 mg/dL (8.7-10.4) Magnesium Level 2.4 mg/dL (1.6-2.6) Total Bilirubin 0.6 mg/dL (0.2-1.0) Aspartate Amino Transferase (AST) 26 U/L (13-40) Alanine Aminotransferase (ALT) 18 U/L (7-40) Alkaline Phosphatase 159 U/L (46-116) B-Type Natriuretic Peptide 4790.68 pg/mL (0-100) Total Protein 7.2 g/dL (5.7-8.2) Albumin 4.3 g/dL (3.2-4.8) Other Laboratory Tests 05/22/24 09:30 05/22/24 02:19 Brief Hx & Hospital Course: Patient is a 38-year-old male with a past medical history of end-stage renal disease on dialysis Monday via left AV fistula, CHF likely HFpEF, hypertension was brought to the ED via EMS for palpitations. Patient is reported to be apparently well when yesterday night around 11:30 p.m. he started to have sudden onset palpitations with the associated substernal chest pain which was sharp in nature, nonradiating, which did not improve with nitroglycerin and aspirin given by the EMS. Patient also reported that since the last week he has been having left-sided chest pain which increased with taking deep breath and on coughing. Patient denied shortness of breath, cough, sick contacts, fever, chills. Patient was brought hospital and on admission he had elevated heart rate anywhere between 120-150. ECG showed heart rate about 150 and likely supraventricular tachycardia. Cardizem 10 mg IV was given following which patient's heart rate became sinus rhythm. Past medical history:end-stage renal disease on dialysis Monday via left AV fistula, CHF likely HFpEF, hypertension Past surgical history: Left AV fistula Social history: Patient denies smoking, alcohol, drug use Home medication: Nifedipine 90 mg q.d., labetalol 300 mg b.i.d., candesartan, Auryxia Hospital course Patient came in with the c/c of chest pain and palpitations. EKG showing SVT and elevated troponins. h/o HTN, heart failure, ESRD, patient had risk factors for ACS and for further assessment cardiology were consulted. Patient was put on telemetry to watch for any arrythmia's. Patient denied all further care and left AMA understanding all risks . Consults/Reason for consult Cardioology consultation for suspected NSTEMI type I and further assessment Nephrology consultation for ESRD Operations or Procedures Echocardiogram Conclusion Technically good study. Sinus rhythm. Significant concentric LVH. Left atrial enlargement. Aortic root enlargement. RV hypertrophy. Right atrial enlargement. Hypertrophied papillary muscles. Mild aortic sclerosis without stenosis. Mild mitral annular calcification and thickening of the anterior mitral leaflet and mild calcification of the chordae. The tricuspid and pulmonic are normal. No significant valvular dysfunction. EF of 65-70% with normal RV function. Mild pulmonic insufficiency. Moderate tricuspid regurgitation. Small pericardial effusion not hemodynamically significant. No intracardiac masses thrombi or vegetations discernible. Bubble study performed appears normal. No crossover noted. Condition at Discharge: Guarded Final Diagnosis/Problems List Acute chest pain, rule out ACS Palpitations, supraventricular tachycardia NSTEMI type 1 versus type 2 Acute on chronic heart failure with preserved ejection fraction Hypertensive heart disease with heart failure End-stage renal disease on hemodialysis Discharge Disposition: AMA Discharge Statement: "Patient was advised to return to the ER or call 911 if any headaches, dizziness, shortness of breath, chest pain, abdominal pain, bleeding, fevers, or worsening of medical condition. Patient was counseled about treatment plan, medications, possible side effects, patientverbalized understanding. All questions were answered to the best of my ability. This discharge took greater then 30 minutes in planning, reviewing documentation, counseling the patient, and discussing with other team members." ASSESSMENT ASSESSMENT Assessment ROES JAIN RESIDENT May 23, 2024 13:05
== END 2024-05-22 19:37 | disposition left against medical advice (07) | DRG 190 ==
LOC: EDBD 01:46 → ER 01:46 → TELE 05:24
PROVIDERS: ADMIT Student in an Organized Health Care Education/Training Program; ATTEND Student in an Organized Health Care Education/Training Program
PROC: 5A1D70Z Performance of Urinary Filtration, Intermittent, Less than 6 Hours Per Day (ICD-10-PCS; principal; 2024-05-22)
DX: I21.4 Non-ST elevation (NSTEMI) myocardial infarction (principal); J96.01 Acute respiratory failure with hypoxia; I50.33 Acute on chronic diastolic (congestive) heart failure; N18.6 End stage renal disease; I47.19 Other supraventricular tachycardia; I13.2 Hypertensive heart and chronic kidney disease with heart failure and with stage 5 chronic kidney disease, or end stage renal disease; Z20.822 Contact with and (suspected) exposure to COVID-19; Z53.29 Procedure and treatment not carried out because of patient's decision for other reasons; E66.9 Obesity, unspecified; Z87.442 Personal history of urinary calculi; Z99.2 Dependence on renal dialysis; Z68.29 Body mass index [BMI] 29.0-29.9, adult
CPT/HCPCS: 36415; 71045; 80053; 80074; 83735; 83880; 84484; 85025; 85610; 85730; 87340; 87426; 87804; 90935; 93005; 93306; 96372; 96374; 96375; G0378; J1642; J2405; J2470